=== PATIENT | male | born 1995 | race African-American/Black ===

== ENCOUNTER 2017-05-16 17:10 | Inpatient (IN) | payer MEDICAID, OTHER ==
[~2017-05-16] VITALS: Ht 185.4 cm; Wt 68.0 kg
[2017-05-16] MEDS ORDERED: INSU100V3 SUBCUT (17:46)
[2017-05-16] MEDS ORDERED: ONDANSETRON HCL 4MG/2ML VIAL IV STA (19:05)
[2017-05-16] MEDS ORDERED: SODIUM CHLORIDE 0.9% 1,000 ML IV ONE ×2 (19:05→22:19)
[2017-05-16] MEDS ORDERED: MORPHINE SULFATE 4 MG/ML CPJ (NOT FOR IM USE) IV STA (19:05)
[2017-05-16 19:23] LABS: BASOPHILS % 1.3 % (0.0-2.0); EOSINOPHILS % 1.6 % (0.0-5.0); HEMATOCRIT. 49.6 % (42.0-52.0); HEMOGLOBIN. 17.1 g/dL (14.0-18.0); LYMPHOCYTES % 32.6 % (20.0-50.0); MEAN CORPUSCULAR HEMOGLOBIN 33.2 pg (28.0-32.0); MEAN CORPUSCULAR VOLUME 96.2 fL (80.0-94.0); MEAN PLATELET VOLUME 9.1 fl (7.4-10.4); MONOCYTES % 5.3 % (2.0-8.0); NEUTROPHILS % 59.2 % (40.0-76.0); PLATELET 276 x1000/uL (130-400); RED BLOOD CELL COUNT 5.16 mill/uL (4.7-6.1); RED CELL DISTRIBUTION WIDTH 12.4 % (11.6-14.6)
[2017-05-16 19:30] LABS: PROTHROMBIN TIME 10.1 sec (9.4-11.6)
[2017-05-16 19:31] LABS: CHLORIDE 90 mEq/L (98-107)
[2017-05-16 19:36] LABS: CARBON DIOXIDE 25 mEq/L (21-32)
[2017-05-16 19:48] LABS: BETA HYDROXYBUTYRATE 3.7 mMol/L (0.0-0.3)
[2017-05-16 21:59] LABS: CLARITY URINE CLEAR (CLEAR); COLOR URINE YELLOW (YELLOW); GLUCOSE URINE 3+ (NEGATIVE); KETONES URINE 3+ (NEGATIVE); LEUKOCYTE ESTERASE URINE NEGATIVE (NEGATIVE); NITRITE URINE NEGATIVE (NEGATIVE); OCCULT BLOOD URINE NEGATIVE (NEGATIVE); PROTEIN URINE NEGATIVE (NEGATIVE); SPECIFIC GRAVITY URINE 1.038 (1.005-1.030); UROBILINOGEN URINE 0.2 E.U./dL (0.2-1.0)
[2017-05-16 22:08] LABS: *AMPHETAMINES SCREEN URINE NEGATIVE (NEGATIVE); *BARBITURATES SCREEN URINE NEGATIVE (NEGATIVE); *BENZODIAZEPINES SCREEN URINE NEGATIVE (NEGATIVE); *COCAINE SCREEN URINE NEGATIVE (NEGATIVE); CANNABINOID URINE SCREEN NEGATIVE (NEGATIVE); METHADONE URINE SCREEN NEGATIVE (NEGATIVE); OPIATES URINE SCREEN PRESUMTIVE POSITIVE (NEGATIVE); PHENCYCLIDINE URINE SCREEN NEGATIVE (NEGATIVE)
[2017-05-16] MEDS ORDERED: INSULIN REGULAR (HUMULIN R) 300UNITS/3ML SUBCUT ONE (22:30)
[2017-05-16] MEDS ORDERED: ACETAMINOPHEN 650MG/20.3ML UDC GT PRN (23:00)
[2017-05-16] MEDS ORDERED: IPRATROPIUM/ALBUTEROL 0.5-3(2.5)MG/3ML NEB INH PRN (23:00)
[2017-05-16] MEDS ORDERED: HYDROCODONE/ACETAMINOPHEN 5/325MG TABLET PO PRN (23:00)
[2017-05-16] MEDS ORDERED: ONDANSETRON HCL 4MG/2ML VIAL IV PRN (23:00)
[2017-05-16] MEDS ORDERED: CLONIDINE 0.1MG TABLET PO PRN (23:00)
[2017-05-16] MEDS ORDERED: MAGNESIUM/ALUMINUM HYDROXIDE/SIMETHICONE 30ML UDC PO PRN (23:00)
[2017-05-17 03:29] VITALS: BP 106/52
[2017-05-17 03:30] VITALS: BP 106/52
[2017-05-17] MEDS ORDERED: INSU100I28 SQ (04:14)
[2017-05-17] MEDS ORDERED: DEXTROSE 50% WATER 50ML SYRINGE IV PRN (04:30)
[2017-05-17] MEDS: SODIUM CHLORIDE 0.9% 1,000 ML IV SCH ×3 (05:32→23:38)
[2017-05-17 05:39] LABS: BASOPHILS % 1.2 % (0.0-2.0); EOSINOPHILS % 3.2 % (0.0-5.0); HEMATOCRIT. 39.9 % (42.0-52.0); HEMOGLOBIN. 13.8 g/dL (14.0-18.0); LYMPHOCYTES % 51.3 % (20.0-50.0); MEAN CORPUSCULAR HEMOGLOBIN 33.1 pg (28.0-32.0); MEAN CORPUSCULAR VOLUME 95.7 fL (80.0-94.0); MEAN PLATELET VOLUME 9.4 fl (7.4-10.4); MONOCYTES % 5.6 % (2.0-8.0); NEUTROPHILS % 38.7 % (40.0-76.0); PLATELET 220 x1000/uL (130-400); RED BLOOD CELL COUNT 4.17 mill/uL (4.7-6.1); RED CELL DISTRIBUTION WIDTH 12.4 % (11.6-14.6)
[2017-05-17] MEDS: BLOOD SUGAR DIAGNOSTIC STRIP TEST SCH ×4 (06:10→21:00)
[2017-05-17] MEDS: INSULIN LISPRO 100 UNITS/ML SUBCUT SCH ×4 (06:13→23:37)
[2017-05-17 06:37] LABS: CARBON DIOXIDE 25 mEq/L (21-32); CHLORIDE 102 mEq/L (98-107); HDL CHOLESTEROL 76 mg/dL (40-59); LDL CHOLESTEROL 70 mg/dL (5-100)
[2017-05-17 08:00] VITALS: BP 102/69
[2017-05-17] MEDS: ENOXAPARIN 40MG/0.4ML SYR SUBCUT SCH (09:46)
[2017-05-17] MEDS ORDERED: INSULIN DETEMIR UD 100 UNITS/ML SYR SUBCUT SCH (10:00)
[2017-05-17 12:00] VITALS: BP 107/77
[2017-05-17] MEDS ORDERED: POTASSIUM CHLORIDE 20MEQ TABLET SR PO NR (14:45)
[2017-05-17 16:00] VITALS: BP 109/74
[2017-05-17 20:00] VITALS: BP 114/78
[2017-05-17] MEDS: INSULIN DETEMIR UD 100 UNITS/ML SYR SUBCUT SCH (23:36)
[2017-05-18] VITALS: BP 110/74
[2017-05-18] MEDS ORDERED: DIPHENHYDRAMINE 25MG CAPSULE PO PRN
[2017-05-18 04:00] VITALS: BP 119/79
[2017-05-18] MEDS: BLOOD SUGAR DIAGNOSTIC STRIP TEST SCH ×2 (06:09→11:43)
[2017-05-18] MEDS: INSULIN LISPRO 100 UNITS/ML SUBCUT SCH ×2 (06:09→11:43)
[2017-05-18 08:00] VITALS: BP 117/82
[2017-05-18] MEDS: INSULIN DETEMIR UD 100 UNITS/ML SYR SUBCUT SCH (10:10)
[2017-05-18] MEDS: ENOXAPARIN 40MG/0.4ML SYR SUBCUT SCH (10:11)
[2017-05-18 12:04] VITALS: BP 110/86
== END 2017-05-18 13:45 | disposition home or self-care (01) | DRG 249 ==
LOC: ER 17:53 → 5WST 22:29 → EDBEDREQTM 22:35 → EDBEDREQ 22:35 → ENRESERV 05-17 02:25 → CANBEDREQ 05-17 16:29
PROVIDERS: ADMIT Internal Medicine; ATTEND Internal Medicine
DX: K52.9 Noninfective gastroenteritis and colitis, unspecified (principal); E11.00 Type 2 diabetes mellitus with hyperosmolarity without nonketotic hyperglycemic-hyperosmolar coma (NKHHC); E11.65 Type 2 diabetes mellitus with hyperglycemia; N32.89 Other specified disorders of bladder; E87.1 Hypo-osmolality and hyponatremia; Z79.4 Long term (current) use of insulin; Z83.3 Family history of diabetes mellitus; Z91.14 Patient's other noncompliance with medication regimen
CPT/HCPCS: 36415; 71010; 74176; 80048; 80053; 80061; 80305; 81001; 82010; 82962; 83036; 83605; 83690; 83735; 84153; 84443; 85025; 85610; 87015; 87040; 87045; 87086; 87427; 87449; 87493; 93970; 96361; 96372; 96374; 96375; 99285; J1650; J1815; J2270; J2405; J7030; Q0163

== ENCOUNTER 2018-07-22 12:52 | Emergency (ER) | payer MEDICAID, OTHER ==
[~2018-07-22] VITALS: Ht 182.9 cm; Wt 87.0 kg
[~2018-07-22 12:52] MED LIST: INSU100I28 SQ; INSU100V3 SUBCUT
[2018-07-22 14:38] LABS: BASOPHILS % 0.8 % (0.0-2.0); CHLORIDE 104 mEq/L (98-107); EOSINOPHILS % 0.8 % (0.0-5.0); HEMATOCRIT. 37.8 % (42.0-52.0); HEMOGLOBIN. 12.7 g/dL (14.0-18.0); LYMPHOCYTES % 24.6 % (20.0-50.0); MEAN CORPUSCULAR HEMOGLOBIN 32.2 pg (28.0-32.0); MEAN PLATELET VOLUME 9.7 fl (7.4-10.4); MONOCYTES % 9.4 % (2.0-8.0); NEUTROPHILS % 64.4 % (40.0-76.0); PLATELET 220 x1000/uL (130-400); RED BLOOD CELL COUNT 3.94 mill/uL (4.7-6.1); RED CELL DISTRIBUTION WIDTH 12.6 % (11.6-14.6)
[2018-07-22] MEDS ORDERED: POTASSIUM CHLORIDE 20MEQ/PACKET PO ONE (15:15)
[2018-07-22 15:30] VITALS: BP 109/71
== END 2018-07-22 16:05 | disposition home or self-care (01) ==
LOC: ER 14:05
DX: E09.649 Drug or chemical induced diabetes mellitus with hypoglycemia without coma (principal); E87.6 Hypokalemia; T38.3X5A Adverse effect of insulin and oral hypoglycemic [antidiabetic] drugs, initial encounter; Y92.89 Other specified places as the place of occurrence of the external cause; Z79.4 Long term (current) use of insulin
CPT/HCPCS: 36415; 80048; 82962; 99283

== ENCOUNTER 2018-07-26 20:30 | Emergency (ER) | payer MEDICAID, OTHER ==
[~2018-07-26] VITALS: Ht 185.4 cm; Wt 72.0 kg
[2018-07-26] MEDS ORDERED: DEXTROSE 50% WATER 50ML SYRINGE IV ONE ×2 (20:47→21:15)
[2018-07-26 23:49] LABS: BASOPHILS % 0.9 % (0.0-2.0); HEMATOCRIT. 36.1 % (42.0-52.0); HEMOGLOBIN. 12.4 g/dL (14.0-18.0); LYMPHOCYTES % 36.6 % (20.0-50.0); MEAN CORPUSCULAR HEMOGLOBIN 32.6 pg (28.0-32.0); MEAN CORPUSCULAR VOLUME 95.5 fL (80.0-94.0); MEAN PLATELET VOLUME 9.3 fl (7.4-10.4); MONOCYTES % 6.2 % (2.0-8.0); NEUTROPHILS % 54.3 % (40.0-76.0); PLATELET 299 x1000/uL (130-400); RED BLOOD CELL COUNT 3.78 mill/uL (4.7-6.1); RED CELL DISTRIBUTION WIDTH 12.7 % (11.6-14.6)
[2018-07-26 23:54] LABS: CHLORIDE 105 mEq/L (98-107)
[2018-07-27 01:04] VITALS: BP 118/85
== END 2018-07-27 01:07 | disposition home or self-care (01) ==
LOC: ER 20:30
DX: E11.649 Type 2 diabetes mellitus with hypoglycemia without coma (principal); T38.3X1A Poisoning by insulin and oral hypoglycemic [antidiabetic] drugs, accidental (unintentional), initial encounter; F12.10 Cannabis abuse, uncomplicated; Y92.89 Other specified places as the place of occurrence of the external cause; Z79.4 Long term (current) use of insulin
CPT/HCPCS: 36415; 80048; 82962; 96374; 99283

== ENCOUNTER 2018-09-16 11:03 | Emergency (ER) | payer OTHER ==
[~2018-09-16] VITALS: Ht 185.4 cm; Wt 75.0 kg
[2018-09-16] MEDS ORDERED: IBUPROFEN 600MG TABLET PO ONE ×2 (13:30→15:15)
[2018-09-16] MEDS ORDERED: ACETAMINOPHEN 325MG TABLET PO ONE (14:00)
[2018-09-16 16:06] VITALS: BP 117/78
== END 2018-09-16 16:09 | disposition home or self-care (01) ==
LOC: ER 11:03
DX: S39.012A Strain of muscle, fascia and tendon of lower back, initial encounter (principal); E11.649 Type 2 diabetes mellitus with hypoglycemia without coma; V43.62XA Car passenger injured in collision with other type car in traffic accident, initial encounter; Y93.89 Activity, other specified; Y92.410 Unspecified street and highway as the place of occurrence of the external cause; Z79.4 Long term (current) use of insulin
CPT/HCPCS: 72070; 73521; 82962; 99283; Z7610

== ENCOUNTER 2019-07-30 05:39 | Emergency (ER) | payer OTHER ==
[~2019-07-30] VITALS: Ht 185.4 cm; Wt 56.0 kg
[2019-07-30] MEDS ORDERED: KETOROLAC 30MG/ML VIAL IV ONE (06:45)
[2019-07-30] MEDS ORDERED: LIDOCAINE 5% PATCH TOP SCH (09:00)
[2019-07-30 09:05] VITALS: BP 106/66
== END 2019-07-30 09:35 | disposition home or self-care (01) ==
LOC: ER 05:39
DX: S76.911A Strain of unspecified muscles, fascia and tendons at thigh level, right thigh, initial encounter (principal); M79.604 Pain in right leg; E11.9 Type 2 diabetes mellitus without complications; X58.XXXA Exposure to other specified factors, initial encounter; Y93.9 Activity, unspecified; Y92.9 Unspecified place or not applicable; Z79.4 Long term (current) use of insulin
CPT/HCPCS: 96374; 99283; J1885; Z7610